=== PATIENT | female | born 1965 | race Caucasian/White ===

== ENCOUNTER 2016-09-22 15:07 | Emergency (ER) | payer OTHER ==
[~2016-09-22] VITALS: Ht 160 cm; Wt 54.4 kg
[2016-09-22 15:25] VITALS: BP 134/81
[2016-09-22] MEDS ORDERED: ONDANSETRON 4 MG TAB.RAPDIS ONE (15:45)
[2016-09-22] MEDS ORDERED: ONDANSETRON 4 MG TAB.RAPDIS SL ONE (16:00)
--- NOTE | 2016-09-22 16:00 | NUR ---
PT SIGNED WAIVER. UNABLE TO PROVIDE URINE DR PENALOZA MADE AWARE
--- NOTE | 2016-09-22 16:44 | NUR ---
Patient discharged to home in stable condition. Written and verbal after care instructions given. Patient verbalizes understanding of instruction.
== END 2016-09-22 16:51 | disposition home or self-care (01) ==
LOC: ER 15:11
DX: M54.2 Cervicalgia (principal); I10 Essential (primary) hypertension; Z91.013 Allergy to seafood; M48.02 Spinal stenosis, cervical region; V43.52XA Car driver injured in collision with other type car in traffic accident, initial encounter; Y92.410 Unspecified street and highway as the place of occurrence of the external cause; Y93.89 Activity, other specified; Y99.8 Other external cause status
CPT/HCPCS: 72125-TC; A4606; Z7610

== ENCOUNTER 2019-01-20 07:30 | Inpatient (IN) | payer OTHER ==
[~2019-01-20] VITALS: Ht 162.6 cm; Wt 56.2 kg
[2019-01-20] MEDS ORDERED: GELATIN SPONGE,ABSORBABLE 1 EA SPONGE TP ONE (08:39)
[2019-01-20] MEDS ORDERED: THROMBIN (BOVINE) 5,000 UNITS VIAL TP ONE (08:39)
[2019-01-20] MEDS ORDERED: ANESTHESIA TRAY IN PYXIS 1 EA TRAY MC ONE (08:39)
[2019-01-20] MEDS ORDERED: CEFAZOLIN 1 GM ONE (08:39)
[2019-01-20] MEDS ORDERED: HEMOSTATIC MATRIX 8 ML 1 EACH PAD MC ONE ×2 (08:39→17:14)
[2019-01-20] MEDS ORDERED: BUPIVACAINE 0.5 % PF 150 MG/30 ML VIAL ONE (08:42)
[2019-01-20] MEDS ORDERED: MIDAZOLAM HCL 2 MG/2ML VIAL ONE (09:40)
[2019-01-20] MEDS ORDERED: HEPARIN SODIUM, PORCINE 5000 UNITS/1 ML VIAL ONE (10:00)
[2019-01-20] MEDS ORDERED: BUPIVACAINE MPF 0.5% W/EPI INJ 30 ML VIAL ONE (10:21)
[2019-01-20] MEDS ORDERED: LANOLIN/MIN OIL/PETROLAT,WHT 3.5 GM TUBE ONE (10:47)
[2019-01-20] MEDS ORDERED: FENTANYL PF 250MCG/5ML AMPUL ONE ×2 (11:11)
[2019-01-20] MEDS ORDERED: ROCURONIUM BROMIDE 50 MG/5 ML ONE (11:12)
[2019-01-20] MEDS ORDERED: FENTANYL PF 100MCG/2ML AMPUL ONE ×2 (11:12→17:52)
[2019-01-20] MEDS ORDERED: HYDROMORPHONE 1 MG/1 ML DISP.SYRIN ONE (17:24)
[2019-01-20] MEDS ORDERED: HYDROMORPHONE 1 MG/1 ML DISP.SYRIN IV PRN (18:00)
[2019-01-20] MEDS ORDERED: BISACODYL SUPP (10 MG) 10 MG/SUPP.RECT SUPP.RECT RC PRN (18:00)
[2019-01-20] MEDS ORDERED: ACETAMINOPHEN 325 MG TABLET PO PRN (18:00)
[2019-01-20] MEDS ORDERED: DOCUSATE SODIUM 100 MG CAPSULE PO PRN (18:00)
[2019-01-20 18:30] VITALS: BP 90/59
[2019-01-20] MEDS: IV NS 0.9% 1,000 ML IV PRN (18:59)
[2019-01-20 20:37] LABS: BASOPHILS % (AUTO) 0.1 % (0.0-2.0); HEMATOCRIT 34 % (33-45); HEMOGLOBIN 11.3 g/dL (11.5-14.8); LYMPHOCYTES # (AUTO) 0.7 /CMM (0.8-4.8); LYMPHOCYTES % (AUTO) 5.1 % (20.0-44.0); MEAN CORPUSCULAR HGB CONC 33 g/dl (31.0-36.0); MEAN CORPUSCULAR VOLUME 94 fL (82-100); MONOCYTES # (AUTO) 0.8 /CMM (0.1-1.30); MONOCYTES % (AUTO) 6.5 % (2.0-12.0); NEUTROPHILS # (AUTO) 11.3 /CMM (1.8-8.9); NEUTROPHILS % (AUTO) 88.3 % (43.0-81.0); PLATELET COUNT (AUTO) 219 /CMM (150-450); RED BLOOD CELL COUNT(AUTO) 3.63 MIL/uL (4.0-5.2); WHITE BLOOD COUNT (AUTO) 12.8 K/uL (4.3-11.0)
[2019-01-20] MEDS: HYDROMORPHONE 1 MG/1 ML DISP.SYRIN IV PRN (22:07)
[2019-01-20 22:53] VITALS: BP 110/72
[2019-01-21] MEDS: ANCEF 1 GM/50 ML D5W IV SCH ×8 (00:07→23:42)
[2019-01-21] MEDS: HYDROMORPHONE 1 MG/1 ML DISP.SYRIN IV PRN ×9 (00:18→21:47)
[2019-01-21 07:16] LABS: BASOPHILS % (AUTO) 0.2 % (0.0-2.0); HEMATOCRIT 29 % (33-45); HEMOGLOBIN 9.9 g/dL (11.5-14.8); LYMPHOCYTES # (AUTO) 0.7 /CMM (0.8-4.8); LYMPHOCYTES % (AUTO) 10.3 % (20.0-44.0); MEAN CORPUSCULAR HGB CONC 34 g/dl (31.0-36.0); MEAN CORPUSCULAR VOLUME 93 fL (82-100); MONOCYTES # (AUTO) 0.6 /CMM (0.1-1.30); MONOCYTES % (AUTO) 8.2 % (2.0-12.0); NEUTROPHILS # (AUTO) 5.8 /CMM (1.8-8.9); NEUTROPHILS % (AUTO) 81.3 % (43.0-81.0); PLATELET COUNT (AUTO) 214 /CMM (150-450); RED BLOOD CELL COUNT(AUTO) 3.12 MIL/uL (4.0-5.2); WHITE BLOOD COUNT (AUTO) 7.1 K/uL (4.3-11.0)
[2019-01-21 08:00] VITALS: BP 111/72
[2019-01-21] MEDS: ONDANSETRON HCL/PF 4 MG/2 ML VIAL IV PRN ×2 (08:07→12:04)
[2019-01-21] MEDS: LOSARTAN POTASSIUM 50 MG TABLET PO SCH ×2 (09:00→20:38)
[2019-01-21] MEDS: IV NS 0.9% 1,000 ML IV PRN (09:22)
[2019-01-21] MEDS: PANTOPRAZOLE 40 MG VIAL IV SCH (09:22)
[2019-01-21] MEDS ORDERED: LOSA50TA39 PO (09:44)
[2019-01-21] MEDS ORDERED: AMLO5TAB4 PO (09:44)
[2019-01-21] MEDS ORDERED: IBUP-1490 PO (09:44)
[2019-01-21] MEDS ORDERED: oxyCODONE/APAP (5/325 MG) 1 UDTAB TABLET PO PRN (10:30)
[2019-01-21] MEDS ORDERED: LORAZEPAM 1 MG TABLET PO PRN (10:30)
[2019-01-21] MEDS: METHOCARBAMOL (500MG) 500 MG TABLET PO SCH ×3 (12:00→23:44)
[2019-01-21 16:00] VITALS: BP 114/72
[2019-01-21 20:00] VITALS: BP 120/76
[2019-01-21 21:40] VITALS: BP 123/79
[2019-01-22] MEDS: HYDROMORPHONE 1 MG/1 ML DISP.SYRIN IV PRN ×6 (00:50→20:58)
[2019-01-22 04:00] VITALS: BP 110/52
[2019-01-22] MEDS: METHOCARBAMOL (500MG) 500 MG TABLET PO SCH ×3 (05:25→17:27)
[2019-01-22] MEDS: ANCEF 1 GM/50 ML D5W IV SCH ×4 (08:55→16:25)
[2019-01-22] MEDS: PANTOPRAZOLE 40 MG VIAL IV SCH (08:56)
[2019-01-22] MEDS: LOSARTAN POTASSIUM 50 MG TABLET PO SCH ×2 (08:56→20:57)
[2019-01-22] MEDS: oxyCODONE/APAP (5/325 MG) 1 UDTAB TABLET PO PRN (17:28)
[2019-01-23] MEDS: METHOCARBAMOL (500MG) 500 MG TABLET PO SCH ×3 (00:22→11:50)
[2019-01-23] MEDS: oxyCODONE/APAP (5/325 MG) 1 UDTAB TABLET PO PRN (00:46)
[2019-01-23] MEDS: HYDROMORPHONE 1 MG/1 ML DISP.SYRIN IV PRN ×3 (02:37→10:51)
[2019-01-23 08:00] VITALS: BP 139/90
[2019-01-23 08:23] VITALS: BP 131/83
[2019-01-23] MEDS: LOSARTAN POTASSIUM 50 MG TABLET PO SCH (08:23)
[2019-01-23] MEDS: PANTOPRAZOLE 40 MG VIAL IV SCH (08:24)
[2019-01-23] MEDS ORDERED: INFLUENZA VACCINE 2019-20 0.5 ML DISP.SYRIN IM ONE (12:00)
== END 2019-01-23 15:00 | DRG 455 ==
LOC: DS 07:30 → MEDSG1 15:47 → TELE1 18:36 → MEDSG1 01-21 09:39
DX: M43.17 Spondylolisthesis, lumbosacral region (principal); M47.26 Other spondylosis with radiculopathy, lumbar region; I10 Essential (primary) hypertension; G89.29 Other chronic pain; M48.07 Spinal stenosis, lumbosacral region
CPT/HCPCS: 36415; 72020-TC; 84702-TC; 85025-TC; 86850-TC; 86921-TC; 87081-TC; 97116-TC; 97530-TC; A6253; C9113; G0378; J0690; J1100; J1170; J1644; J2250; J2405; J2704; J2710; J3010; J3490; J7030; J7060; Q2036